=== PATIENT | male | born 1985 | race Two or more races ===

== ENCOUNTER 2020-05-29 16:22 | Emergency (ER) | payer BC ==
[2020-05-29 16:47] VITALS: BP 133/81; PULSE 76; TEMP 98.1; BMI 26.6
[2020-05-29] MEDS ORDERED: MECLIZINE HCL 25 MG TABLET (FP) PO ONE (18:39)
[2020-05-29] MEDS ORDERED: ONDANSETRON *ODT* 4 MG TABLET SL ONE (18:44)
[2020-05-29] MEDS ORDERED: MECLIZINE HCL 25 MG TABLET (FP) ONE (18:46)
[2020-05-29] MEDS ORDERED: ONDANSETRON *ODT* 4 MG TABLET ONE (18:51)
== END 2020-05-29 18:58 | disposition home or self-care (01) ==
LOC: JER 16:22
DX: S06.0X0A Concussion without loss of consciousness, initial encounter (principal)
CPT/HCPCS: 70450-TC; 99284-25; Q0162

== ENCOUNTER 2023-06-24 12:04 | Emergency (ER) | payer BC ==
[2023-06-24 12:13] VITALS: BP 112/76; PULSE 104; RESP 20; TEMP 97.3; BMI 27.3
[2023-06-24] MEDS ORDERED: ACETAMINOPHEN INJECTION 100 ML IVPB ONE (12:55)
[2023-06-24] MEDS ORDERED: KETOROLAC TROMETHAMINE 30 MG/1 ML VIAL ONE (12:55)
[2023-06-24] MEDS: ACETAMINOPHEN 1000 MG/100 ML BAG IVPB ONE (13:00)
[2023-06-24] MEDS: KETOROLAC TROMETHAMINE 15 MG/ML VIAL IVPUSH ONE (13:01)
[2023-06-24 13:05] LABS: BASO % 0.3 % (0-2.0); EOS % 1.6 % (0-4.5); HEMATOCRIT 42.3 % (35.4-49); HEMOGLOBIN 14.5 GM/dL (11.7-16.9); LYMPH % 12.2 % (8-40); MCH 29.5 pg (25.7-33.7); MCHC 34.3 g/dl (32.0-35.9); MEAN CELL VOLUME 85.9 fl (80-96); MEAN PLT VOLUME 8.6 fl (7.5-11.1); NEUT % 77.9 % (42.8-82.8); PLATELET COUNT 226 10^3/uL (134-434); RBC 4.92 M/mm3 (4.00-5.60); RDW 14.6 % (11.9-15.9)
[2023-06-24 13:47] LABS: BLOOD UREA NITROGEN 13.6 mg/dL (7-18); CALCIUM 8.9 mg/dL (8.5-10.1)
[2023-06-24 13:52] LABS: BILIRUBIN,TOTAL 1.3 mg/dL (0.2-1); TOT PROT 7.3 g/dl (6.4-8.2)
[2023-06-24] MEDS ORDERED: PENICILLIN G BENZATHINE 1,200,000 UNIT/2 ML PFS IM ONE (16:02)
[2023-06-24] MEDS: PENICILLIN G BENZATHINE 1,200,000 UNIT/2 ML PFS IM ONE (16:07)
== END 2023-06-24 16:16 | disposition home or self-care (01) ==
LOC: JER 12:04
PROC: 3E033NZ Introduction of Analgesics, Hypnotics, Sedatives into Peripheral Vein, Percutaneous Approach (ICD-10-PCS; principal; 2023-06-24)
PROC: 3E0333Z Introduction of Anti-inflammatory into Peripheral Vein, Percutaneous Approach (ICD-10-PCS; 2023-06-24)
PROC: 3E02329 Introduction of Other Anti-infective into Muscle, Percutaneous Approach (ICD-10-PCS; 2023-06-24)
DX: J02.0 Streptococcal pharyngitis (principal)
CPT/HCPCS: 36415; 70491-TC; 80053; 85025; 99285-25; J0131